=== PATIENT | female | born 1980 ===

== ENCOUNTER 2018-04-04 09:35 | Inpatient (IN) | payer MEDICAID, OTHER ==
[2018-04-04] MEDS ORDERED: Lactated Ringer's 1,000 ML IV ONE (10:00)
[2018-04-04 10:52] LABS: BASO % 0.2 % (0.0-2.0); EOS # 0.1 K/uL (0.0-0.7); EOS % 0.6 % (0.0-4.0); HEMOGLOBIN 12.7 g/dL (11.0-16.0); LYMPH # 1.8 K/uL (1.0-4.3); LYMPH % 16.4 % (20.0-40.0); MEAN CELL VOLUME 90.9 fL (81.0-99.0); MEAN CORPUSCULAR HEMOGLOBIN 31.5 pg (27.0-31.0); MEAN CORPUSCULAR HGB CONC 34.7 g/dL (33.0-37.0); MEAN PLATELET VOLUME 9.8 fL (7.2-11.7); MONO # 0.7 K/uL (0.0-0.8); MONO % 6.3 % (0.0-10.0); NEUT # 8.4 K/uL (1.8-7.0); NEUT % 76.5 % (50.0-75.0); RBC 4.02 Mil/uL (3.80-5.20)
[2018-04-04 11:03] LABS: SQUAMOUS EPITHIAL 16 /hpf (0-5); URINE BILIRUBIN NEGATIVE (NEGATIVE); URINE BLOOD 2+ (NEGATIVE); URINE CLARITY Hazy (Clear); URINE COLOR Yellow (YELLOW); URINE GLUCOSE (UA) NORMAL (Normal); URINE LEUKOCYTE ESTERASE NEG Leu/uL (Negative); URINE PROTEIN NEGATIVE (NEGATIVE); URINE UROBILINOGEN NORMAL mg/dL (0.2-1.0)
[2018-04-04 11:08] LABS: ALB/GLOB RATIO 1.1 (1.0-2.1); ALBUMIN 3.5 g/dL (3.5-5.0); ALT/SGPT 18 U/L (9-52); AST/SGOT 19 U/L (14-36); BLOOD UREA NITROGEN 8 mg/dL (7-17); GFR AFRICAN-AMERICAN > 60; GFR NON-AFRICAN AMERICAN > 60
[2018-04-04] MEDS ORDERED: Sodium Citrate/Citric Acid 15 ml Sol PO ONE (11:25)
[2018-04-04] MEDS ORDERED: cefOXitin IV 2 gm in Dextrose 2 GM/50 ML BAG IVPB ONE (11:25)
[2018-04-04] MEDS ORDERED: ePHEDrine 50 mg/ml Inj ONE (11:32)
[2018-04-04] MEDS ORDERED: Oxytocin 20 units in LR 2,000 ML IV ONE (11:34)
[2018-04-04] MEDS ORDERED: cefOXitin IV 2 gm in Saline 2 GM/50 ML BAG IVPB ONE (11:34)
[2018-04-04] MEDS ORDERED: Oxycodone/Acetaminophen 5/325 mg Tab PO PRN ×2 (12:06)
--- NOTE | 2018-04-04 13:14 | OBADHP ---
Datetime: 04/04/2018 11:31 Admit Comment, IP Provider: Patient is a 37 year old at 39w6d EDVIN 04/05/18 by LMP 06/30/17 wh o presented to L+D for suspected rupture of membranes. Patient states that she noticed leakage of flu id since 7:30am. Fluid was clear. Also admits to small streak of blood. Patient endorses +FM, CTX. Co ntractions since this morning were q30 min and 4/10 on pain scale. 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 06/30/17 Denies STDs, abdnormal paps, ovarian cysts, fibroids Allergies: NKDA Medications: PNV, Acyclovir (started 15 days ago) Medical History: HSV-1 Surgical History: Denies Social History: Denies alcohol, tobacco, drug use Family History: Mother - alive, healthy; Father - alive, healthy PE: See above A/P: 37 year old at 39w6d who presented with rupture of membranes and active herpetic lesi on -Admit to unit -TOCO and CEFM -Diet NPO -Patient consented for Primary C/S -Admission labs: CBC, CMP, T+S, HIV, RPR, UA -Cefoxtin 2 gm, Bictra, pepcid preoperatively -Plan discussed with Dr Robbi Cota DO PGY-2 FHR - Baseline A Provider: 150 Amniotic Fluid Color, Provider: Clear Membranes, Provider: Ruptured Contraction Comments Provider: irregular Comments, ACOG Physical Exam: VSS Gen: AAOx3 CV: RRR Lungs: CTA B/L Abd: Soft, gravid : +herpetic lesions SSE: +nitazine positive Pool Provider: Positive Nitrazine Provider: Positive IP Hx Assessment: The History has been Reviewed and is Current Vital Signs Provider: Reviewed IP Chief Complaint: Suspected ruptured membranes; Other NICHD Variability Prov Fetus A: Moderate 6-25bpm NICHD Accel Fetus A IP Provider: [id number] FHR Category Provider Fetus A: Category I NICHD Decel Fetus A IP Provider: None Dilatation, Provider: 2 EGA AdmitDate IP: 39.6 IP Adm Impression: Term, intrauterine IP Admit Plan: Admit to unit; Initiate Section protocol
--- NOTE | 2018-04-04 13:28 | OBDS ---
MATERNAL INFORMATION Provider Comments: baby deliverd imn shelbi. cord arround neck. red cord gas and blods taken end cl nom com LABOR SUMMARY EDC: 04/05/2018 00:00 LABOR INFORMATION Group B Beta Strep: Negative STAGES OF LABOR Stage 3 hrs: 0 Stage 3 min: 1 BABY A INFORMATION Delivery Date/Time: 04/04/2018 12:24 Method of Delivery: Born in Route : No : N/A Forceps: N/A Vacuum Extraction: N/A Shoulder Dystocia : No SHOULDER DYSTOCIA BABY A Infant Delivery Date/Time: 04/04/2018 12:24 PRESENTATION/POSITION BABY A Presentation: Cephalic Cephalic Presentation: Vertex Vertex Position: Left Occipital Anterior Breech Presentation: N/A (Annotations: Data stored by [facility] on behalf of user) PLACENTA INFORMATION BABY A Placenta Delivery Time : 04/04/2018 12:25 Placenta Method of Delivery: Manual Removal Placenta Status: Delivered INFANT INFORMATION BABY A Gestational Age at Delivery: 39.6 Gestational Status: Term Infant Outcome : Liveborn Condition : Stable Sex: Female IDENTIFICATION/MEDS BABY A ID Band Number: [id number] ID Band Location: Left Leg; Left Arm Sensor Applied: Yes Sensor Number: [id number] Sensor Location : Cord Clamp WEIGHT/LENGTH BABY A Infant Birthweight (gms): 3885 Weight (lb): 8 Weight (oz): 9 Infant Length Inches: 20.00 Infant Length cms: 50.8 CORD INFORMATION BABY A No. Cord Vessels: 3 Nuchal Cord : Around Neck x1, Loose Cord Blood Taken: Yes Infant Suction: Mouth; Nose
[2018-04-04] MEDS ORDERED: Naloxone 0.4 mg/ml Inj (Adult) IVP PRN (14:00)
[2018-04-04] MEDS ORDERED: Morphine 4 MG/ML VIAL IVP PRN (14:00)
[2018-04-04] MEDS ORDERED: DiphenhydrAMINE 50 mg/ml Inj IVP PRN (14:00)
[2018-04-04] MEDS ORDERED: Acyclovir 500 MG in Sodium Chloride 0.9% 100 ML IV SCH (14:30)
[2018-04-04] MEDS: Simethicone 80 mg Chewtab PO SCH ×3 (17:14→21:13)
[2018-04-04] MEDS: Lactated Ringer's 1,000 ML IV SCH (23:55)
[2018-04-05] MEDS: Acyclovir 500 MG in Sodium Chloride 0.9% 100 ML IV SCH ×2 (04:06→16:14)
[2018-04-05] MEDS: Lactated Ringer's 1,000 ML IV SCH (04:06)
--- NOTE | 2018-04-05 07:42 | OP ---
Copied To: Jose A Hendricks MD Attending MD: Jose A Hendricks MD PROCEDURE DATE: 04/04/2018 PREOPERATIVE DIAGNOSIS: A 37-year-old 4, para 3 at 39 weeks with . POSTOPERATIVE DIAGNOSIS: A 37-year-old 4, para 3 at 39 weeks with . SURGEON: Jose A Hendricks MD CHAIR UPHOLSTERER: Dr. Benjamin Groves. ANESTHESIA: Spinal. ANESTHESIOLOGIST: Dr. Rodriguez. COMPLICATIONS: None. PROCEDURE: Primary section. ESTIMATED BLOOD LOSS: 800 mL. DESCRIPTION OF PROCEDURE: After informed consent was obtained, the patient was brought to the operating room, placed on the table where spinal anesthesia was given. When anesthesia was found to be sufficient, she was prepped and draped in normal sterile fashion. Once the anesthesia was given, she was prepped and draped in the normal sterile fashion. At the site of the previous skin incision, an incision was made with a knife; the subcutaneous cut with a Bovie and the fascia was excised on both the sides using curved Oates scissors. Rectus muscle was and peritoneum was excised. We went to the abdominal cavity incision was made, baby was delivered position. Cord was clamped and baby was handed to the awaiting hash slinger. Cord gas was taken. Cord blood was taken too. Placenta delivered manually, it was sent for pathology. Uterus was exteriorized and cleared of all clots and debris. Uterine incision was closed using #1 Vicryl in interlocking fashion. The patient underwent bilateral tubal ligation using modified [place] technique. on the right side. After that, cul-de-sac was cleared of all clots and debris. Uterus was returned back to the abdominal cavity. Gutters were cleared of clots and debris. Then the peritoneum was closed using 2-0 Vicryl in running interlocking fashion. Muscle was closed using 2-0 Vicryl in running interlocking fashion. The fascia was then closed using #1 Vicryl in running interlocking fashion. Subcutaneous tissue was closed with #1 Vicryl in interrupted fashion. Skin was closed using 3-0 Monocryl on straight needle. The patient tolerated the procedure well. Lap, sponge, and instrument counts were correct x2. Jose A Hendricks MD [facility] # [id number]
[2018-04-05 07:54] LABS: MEAN CELL VOLUME 90.6 fL (81.0-99.0); MEAN CORPUSCULAR HEMOGLOBIN 31.2 pg (27.0-31.0); MEAN CORPUSCULAR HGB CONC 34.4 g/dL (33.0-37.0); MEAN PLATELET VOLUME 9.4 fL (7.2-11.7); RBC 3.86 Mil/uL (3.80-5.20); RED CELL DISTRIBUTION WIDTH 13.7 % (11.5-14.5); WHITE BLOOD COUNT 12.7 K/uL (4.8-10.8)
[2018-04-05] MEDS: Simethicone 80 mg Chewtab PO SCH ×4 (09:08→21:29)
[2018-04-05] MEDS ORDERED: Bisacodyl 5mg EC Tab PO ONE ×2 (12:06→18:15)
[2018-04-05] MEDS: Prenatal Multivit/Folic Acid/Iron Tab PO SCH (13:45)
--- NOTE | 2018-04-05 22:39 | OBPPN ---
Datetime: 04/05/2018 21:52 PP Pain Prov: Within normal limits PP Nausea Prov: Denies PP Flatus Prov: No PP BM Prov: No PP Breasts Prov: Normal PP Heart Prov: Normal PP Lungs Prov: Normal PP Abdomen/Uterus Prov: Normal PP Lochia Prov: Normal PP Vulva/Perineum Prov: Not Done PP CVA Tenderness Prov: Normal PP Extremities Prov: Normal PP C/S Incision Prov: Normal PP Progress Prov: Normal PP Comments Phys Exam Prov: Breasts: no cracked nipples Abdomen: (+) BS. Obese. Soft; non distended. Dressing removed; incision clean dry and intact; Fun dus firm, mild and appropriately tender, mobile, 1 FB below umbilicus. Mild lochia rubra. Extremities: no calf tenderness. All other systems reviewed and are negative PP Impression Prov: Normal progression PP Plan Prov: Continue present management PP Progress Note Prov: Patient seen and evaluated with Resident, Dr. 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 Denies nausea, vomiting. Amb ulating to bathroom; voided without difficulty. Desires to pump breasts. at [facility] r - doing well P.E.: as above. Mildly obese, in NAD. Awake, alert, oriented to time, person and place. Pleasant and cooperative. present - POD#1 H/H 12.0/35.6 Assessment: POD#1, 39 y.o. P4, S/P primary C/S for active herpetic lesions. Afebrile, vital signs stable. Returning GI and functions. Currently on acyclovir. Patient is clinically stable. Plan: 1) continue present management 2) Encourage ambulation 3) Encourage incentive spirometer use 4) Possible discharge home 04/06/18, if patient desires, and if post operative course remains uncom plicated. Addendum: 2024 hour - notified by R.N.: iV has infiltrated. Plan: 1) switch to p.o. acyclovir 400 mg p.o. TID Vital Signs Provider PP: Reviewed; Within Normal Limits
[2018-04-06 08:06] VITALS: RESP 18
[2018-04-06] MEDS: Simethicone 80 mg Chewtab PO SCH ×3 (10:20→18:20)
[2018-04-06] MEDS: Prenatal Multivit/Folic Acid/Iron Tab PO SCH (10:21)
--- NOTE | 2018-04-06 20:51 | OBDCSUM ---
Datetime: 04/06/2018 17:14 Discharged to, Provider: Home Follow up at, Provider: [facility] Disch Instr Activity: Normal activity; May Shower Disch Instr Diet: Regular Discharge Diet restrict Prov: none Discharge Instructions, Provider: Routine instructions given Discharge Diagnosis, Provider: Term Delivered Discharge Time: 04/06/2018 17:14 Follow up in weeks, Provider: 04/11/18 Disch Referrals: None Disch Activity Restrictions: No exercising; No lifting; No sexual activity; Nothing in vagina - Inte rcourse, tampons, douche Discharge Diagnosis Prov Other: Advanced maternal age Active herpes labialis Status post primary section Status post tubal ligation
[2018-04-07 00:01] VITALS: BP 111/71; PULSE 90; TEMP 99.1; O2SAT 97
== END 2018-04-06 18:30 | disposition home or self-care (01) | DRG 371 ==
LOC: C.EROB 09:35 → C.4D 10:01 → C.4M 16:00
PROVIDERS: ADMIT Obstetrics & Gynecology; ATTEND Obstetrics & Gynecology
PROC: 10D00Z1 Extraction of Products of Conception, Low, Open Approach (ICD-10-PCS; principal; 2018-04-04)
PROC: 0UL70ZZ Occlusion of Bilateral Fallopian Tubes, Open Approach (ICD-10-PCS; 2018-04-04)
DX: O69.81X0 Labor and delivery complicated by cord around neck, without compression, not applicable or unspecified (principal); Z3A.39 39 weeks gestation of pregnancy; O98.52 Other viral diseases complicating childbirth; B00.1 Herpesviral vesicular dermatitis; E66.9 Obesity, unspecified; O99.214 Obesity complicating childbirth; Z30.2 Encounter for sterilization; Z37.0 Single live birth

== ENCOUNTER 2018-07-13 11:33 | Emergency (ER) | payer MEDICAID, OTHER ==
--- NOTE | 2018-07-13 12:45 | C.PDOC ---
History Of Present Illness 37 year old female presents to the ED for evaluation of lump to the left chest with associated redness and swelling that started 5 days ago. Reports it started as a small pimple and then she squeezed it and got bigger. States tetanus vaccination is not UTD. Denies any fever, chest pain, breast pain or discharge, sob or any other symptoms. Time Seen by Provider: 07/13/18 12:06 Chief Complaint (Nursing): Abnormal Skin Integrity History Per: Patient History/Exam Limitations: no limitations Onset/Duration Of Symptoms: Days (5) Current Symptoms Are (Timing): Still Present Location Of Injury: Left: Chest Quality Of Symptoms: Painful, Swollen Past Medical History Reviewed: Historical Data, Nursing Documentation, Vital Signs Vital Signs: Last Vital Signs Temp 99.6 F 07/13/18 11:39 Pulse 102 H 07/13/18 11:39 Resp 18 07/13/18 11:39 BP 131/81 07/13/18 11:39 Pulse Ox 99 07/13/18 11:39 - Medical History PMH: No Chronic Diseases Denies: Depression, Diabetes, HTN Surgical History: - [facility] Procedures EXTRACTION OF POC, LOW CERVICAL, OPEN APPROACH (04/04/18) MONITORING NOS (05/09/13) MANUAL ASSIST DELIV NEC (05/09/13) OCCLUSION OF BILATERAL FALLOPIAN TUBES, OPEN APPROACH (04/04/18) Family History: States: No Known Family Hx - Social History Hx Alcohol Use: No Hx Substance Use: No - Immunization History Hx Tetanus Toxoid Vaccination: No Hx Influenza Vaccination: No Hx Pneumococcal Vaccination: No Review Of Systems Except As Marked, All Systems Reviewed And Found Negative. Constitutional: Negative for: Fever, Chills Physical Exam - Physical Exam Appears: Non-toxic, No Acute Distress Skin: Warm, Dry, No Rash, Other ((+) 3cm area of erythema , warmth and induration to the left anterior superior chest wall, above the breast) Head: Atraumatic, Normacephalic Eye(s): bilateral: Normal Inspection, EOMI Nose: Normal Oral Mucosa: Moist Neck: Normal ROM, Supple Chest: Symmetrical Cardiovascular: Rhythm Regular Respiratory: Normal Breath Sounds, No Accessory Muscle Use Neurological/Psych: Oriented x3, Normal Speech Gait: Steady ED Course And Treatment O2 Sat by Pulse Oximetry: 99 (RA) Pulse Ox Interpretation: Normal Progress Note: Discussed with pt wound care and signs of concern. Instructed wound check in 2 days. Disposition - Disposition Disposition: HOME/ ROUTINE Disposition Time: 12:44 Condition: STABLE Additional Instructions: Apply warm compresses to the area. Wound check in 2 days. Watch for signs of fever, increased redness or swelling. Aplicar compresas tibias en la dario. Control de heridas en 2 becerril. Est atento a los signos de fiebre, aumento del enrojecimiento o hinchazn. Prescriptions: Clindamycin [Cleocin] 300 mg PO Q6 #28 cap Instructions: Cellulitis (Skin Infection), Adult (DC) Forms: [employer] (Palauan) Print Language: GEORGIAN - Clinical Impression Clinical Impression: Cellulitis - PA / CLAIMS ADJUSTER CROP / Resident Statement MD/DO has reviewed & agrees with the documentation as recorded. - Scribe Statement The provider has reviewed the documentation as recorded by the Scribe Emily Mcpherson All medical record entries made by the Scribe were at my direction and personally dictated by me. I have reviewed the chart and agree that the record accurately reflects my personal performance of the history, physical exam, medical decision making, and the department course for this patient. I have also personally directed, reviewed, and agree with the discharge instructions and disposition.
[2018-07-13 13:11] VITALS: BP 113/78; PULSE 98; RESP 19; TEMP 99.2
[2018-07-13 13:26] VITALS: O2SAT 99
== END 2018-07-13 13:11 | disposition home or self-care (01) ==
LOC: C.ER 11:33
DX: L03.313 Cellulitis of chest wall (principal)